=== PATIENT | female | born 1975 | race Caucasian/White ===

== ENCOUNTER → 2017-09-29 14:44 | Outpatient (CLI) | payer MEDICAID, SELFPAY ==
--- NOTE | 2017-09-29 14:51 | RAD_ITS ---
STUDY: X-RAY - RIGHT KNEE REASON FOR EXAM: Female, 42 years old. Chronic knee pain. TECHNIQUE: 4 view(s) of the knee. COMPARISON: None. FINDINGS: There is minimal marginal osteophytic lipping of the patellofemoral articulation. There is no significant degeneration of the medial lateral compartment of the knee. There is no effusion. Periarticular soft tissues are normal. Osseous structures are acutely intact and normally mineralized. RAD/Knee 4 or More Views IMPRESSION: Very minimal/early features of DJD. Similar to that seen in the left knee. No acute abnormality. Electronically Signed: Wil Robbins, at 15:40 EDT Tel , Service support ,
--- NOTE | 2017-09-29 14:52 | RAD_ITS ---
STUDY: X-RAY - LEFT KNEE REASON FOR EXAM: Female, 42 years old. Pain, months. TECHNIQUE: 4 view(s) of the knee. COMPARISON: X-ray contralateral knee same date. FINDINGS: There is very slight osteophytic lipping about the margin of the patellofemoral articulation. No significant degenerative features of the medial or lateral compartments. Osseous structures intact and normally mineralized. Periarticular soft tissues normal. No effusion. RAD/Knee 4 or More Views IMPRESSION: Very minimal/early DJD. No acute abnormality. Electronically Signed: Wil Robbins, at 15:39 EDT Tel , Service support ,
== END ==
PROVIDERS: Family Provider Internal Medicine; PCP Internal Medicine; Visit Provider Internal Medicine
DX: M19.90 Unspecified osteoarthritis, unspecified site (principal)
CPT/HCPCS: 73564

== ENCOUNTER 2017-12-09 14:00 | Outpatient (RCR) | payer MEDICAID, SELFPAY ==
--- NOTE | 2017-11-01 10:23 | HP.PTEVAL_ITS ---
Patient's Visit Information SLOANE BURRIS is a 42 year old F referred to Physical Therapy by AVILA Gee with a diagnosis of Bilateral patellofemoral syndrome. Date of Evaluation: 11/01/17 Physical Therapist: Jake Tyson - Visit Plan Frequency: 2x /Week Duration: 4 Weeks Plan: Start with quad, glute med, glute max and hip ER strengthening in non painful regions. Add in HS stretching, may use modalities to reduce acute symptoms. - Subjective Subjective: Pt. is here today for her initial evaluation with diagnosis of bilateral patellofemoral syndrome. Pt. 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 Pt. reports having increased pain with walking, squating, pt. transfers, stairs. Pt. had reduced pain with ice and useing her braces. Pt. denies N/T. Pt. reports that her R knee is now worse than her L. Pt. reports most pain at medial aspect of R knee. No mechanism of injury noted. Pt. is able to sleep without issues. Pt. denies radiating pain in either LE. Pt. is hopeful to reduce symptoms in order to get back to all recreational and work activities without issues. - Pain R knee Pain Intensity (Out of 10): 2 Pain Intensity Range: 1, 6 L knee Pain Intensity (Out of 10): 1 Pain Intensity Range: 0, 4 - Objective POSTURE: Pt. has slight L sided wt. shift in stance. Pt. has slight increase in genu valgum of bilateral knees with femoral IR bilaterally. PALPATION: Pt. has increased tenderness to palpation of medial joint lines bilaterally, R worse than L. Pt. has no popliteal fossa pain bilaterally. NEUROLOGICAL: Normal, all intact without issues. Pt. is able to perform heel/toe raises without issues. ROM: Pt. has normal ROM of bilateral knees and hip. With R active knee ext, pt. had mild popping at 20-30deg of knee ext. Increase NW. Only on R side. No L sided popping noted this date. MMT: RLE- ankle 5/5 throughout; knee- ext 4/5, flexion 4/5; hip- flexon 4+/5, abd 4+/5, ext 4/5, ER 4/5, IR 4/5. LLE- ankle 5/ 5 throughout; knee- ext 4+/5, flexion 4/5; hip- flexion 4+/5, adb 4/5, ext 4/5, ER 4/5, IR 4/5. GAIT: Pt. has increased femoral IR with genu valgum during stance phase of B LEs. Pt. has decreased knee flexion during R swing phase. Antalgic pattern during R stance phase. STAIRS: Pt. uses 1 HR with step to pattern with both ascending and descending, loading LLE only. Pt. reprots increased pain with attempting to load RLE. - Special Tests R Knee Jolanta - Meniscus: Negative R Knee Disco Test - Meniscus: Positive R Knee Nay - ACL: Negative R Knee Posterior Drawer - PCL: Negative R Knee Valgus - MCL: Negative R Knee Varus - LCL: Negative R Knee Patellar Apprehension - PFS: Negative R Knee Patellar Grind - PFS: Positive L Knee Jolanta - Meniscus: Negative L Knee Disco Test - Meniscus: Positive L Knee Nay - ACL: Negative L Knee Valgus - MCL: Negative L Knee Varus - LCL: Negative L Knee Patellar Apprehension - PFS: Negative L Knee Patellar Grind - PFS: Positive - Goals Goal 1:: Pt. to be I with HEP. Goal Time Frame: 4-6 Weeks Goal 2:: Pt. to have increased HS length and IT band length by 25% bilaterally. Goal Time Frame: 4-6 Weeks Goal 3:: Pt. to have increased BLE strength by 1/2 grade of her quads, glute medius, glute max, and hip ER to stabilize her knees with all functional mobility. Goal Time Frame: 4-6 Weeks Goal 4:: Pt. ambulate with normal pattern without increase in symptoms for unlimited distances. Goal Time Frame: 4-6 Weeks Goal 5:: Pt. to negotiate steps with reciprocal pattern with 1 HR without increase in symptoms of B knees. Goal Time Frame: 4-6 Weeks Goal 6:: Pt. to resume all work related activities without increase in symptoms. - Rehabilitation Potential Physical Therapy Diagnosis: Pt.has signs and symptoms consistent of B patellofemoral syndrome with R being worse than L. Pt. has tight bilateral IT bands, weak quads/glute med/glute max/Hip ER. Pt. would benefit from PT to strengthen above weak musculature in order to stabilize her knee with all functional mobility. Rehabilitation Potential: Excellent - Anticipated Interventions Patient/Client Instruction: Educate patient on: Condition, Plan of Care, Risk Factors, Benefits of Fitness Program For the Purpose of:: To foster healthy habits, To improve decision making, To facilitate caregiver knowledge, To improve self management, To prevent re-injury , To improve ability to perform tasks related to life management, To improve tolerance to ADL's Therapeutic Exercise to Include: Strength training, Power training, Body mechanics, Postural training, Flexibilty training, Gait and locomotor training, Passive ROM, Active ROM, Dynamic Lumbar Stabilization For the Purpose of:: To decrease pain, To increase ROM, To improve nutrient delivery to tissue, To increase oxygenation perfusion, To improve muscle performance and motor function, To improve health of tissue, To decrease soft tissue restriction IF ES: Yes Cryotherapy (ice pack, ice massage): Yes Thermo therapy (hot pack): Yes Ultrasound (thermal/non thermal): Yes For the Purpose of:: To decrease pain, To decrease swelling/inflammation, To increase ROM, To improve nutrient delivery to tissue Thank you for the opportunity to evaluate your patient. For Medicare and Medicare HMO plans, please review the plan of care and approve it. It will need to be FAXED BACK to us at [phone] for Medicare purposes. Please let me know if there are questions or concerns regarding this plan of care. Physician Signature: Date:
--- NOTE | 2018-01-10 14:00 | HP.PTDCSUM ---
HP - PT D/C Summary It has been my pleasure to treat SLOANE BURRIS under orders from AVILA Gee, for the diagnosis of Bilateral patellofemoral syndrome for a total of 8 visit(s). Discharge Date: 12/09/17 Please see the following information for a summary of their discharge status. - Subjective Subjective: Pt reports intermittent pain in B knees. Pt. reports increased exercises seem to increase her symptoms. Pt. has relief with stretching. Pt. reports being HEP compliant ~50% of the time. Pt. reports being 60% better overall. - Pain R knee Pain Intensity (Out of 10): 2 L knee Pain Intensity (Out of 10): 2 - Overall Improvement % Improvement: 60 - Objective Objective/Function: Pt has improved HS length to normal, increase IT band lenth to normal. MMT- RLE- ankle 5/5 throughout; knee- ext 5-/5, flexion 5-/5; hip- flexion 4+/5, abd 4+/5, ext 4+/5. LLE- anle 5/5 throughout; knee- ext 5-/5, flexion 5-/5; hip- flexion 4+/5, abd 4+/5, ext 4+/5. Core- fair-. GAIT- pt. has normal gait pattern. She continues to stand with hyper extended knee positioning, VCing to improve. STAIRS: Pt. is able to compelte with reciprocal pattern wth minimal icrease in symptoms, descending worse than ascending. - Goals Goal 1:: Pt. to be I with HEP. Goal Progress: Goal Met Goal 2:: Pt. to have increased HS length and IT band length by 25% bilaterally. Goal Progress: Goal Met Goal 3:: Pt. to have increased BLE strength by 1/2 grade of her quads, glute medius, glute max, and hip ER to stabilize her knees with all functional mobility. Goal Progress: Progressing Goal 4:: Pt. ambulate with normal pattern without increase in symptoms for unlimited distances. Goal Progress: Progressing Goal 5:: Pt. to negotiate steps with reciprocal pattern with 1 HR without increase in symptoms of B knees. Goal Progress: Progressing Goal 6:: Pt. to resume all work related activities without increase in symptoms. Goal Progress: Progressing - Plan Plan: Pt. to be Dc to HEP at this point in time. - D/C Information Discharge Comments: Pt. was seen for her B knee condramalasia. Pt. was treated with BLE stretching, quad and glute med strengthening along with body mechanics to reduce stress applied to B knees with all work activiies. Pt. tolerance PT well, but had increased symptoms once exercises were progress. Pt. is independent with current HEP and anthony be DC to HEP to trial on own at this point in time. If there are questions or concerns regarding this patient's physical therapy, please feel free to call me at [phone]. Thank you for the referral of this patient. Sincerely, Jake Tyson
== END 2017-12-09 19:00 | disposition home or self-care (01) ==
LOC: PT 14:00
PROVIDERS: Family Provider Internal Medicine; PCP Internal Medicine; Visit Provider Physician Assistant
DX: M22.2X1 Patellofemoral disorders, right knee (principal); M22.2X2 Patellofemoral disorders, left knee
CPT/HCPCS: 97110; 97162

== ENCOUNTER → 2018-04-25 15:32 | Outpatient (CLI) | payer MEDICAID, SELFPAY ==
[2018-04-25 14:13] VITALS: BMI 37.4
[2018-04-25 16:42] LABS: T4 Free Direct 0.82 ng/dL (0.76-1.46)
[2018-04-29 09:29] LABS: HPV APTIMA, High Risk Negative (Negative)
== END ==
PROVIDERS: Family Provider Internal Medicine; PCP Internal Medicine; Referring Provider Obstetrics & Gynecology; Visit Provider Obstetrics & Gynecology
DX: E01.0 Iodine-deficiency related diffuse (endemic) goiter (principal); Z12.4 Encounter for screening for malignant neoplasm of cervix
CPT/HCPCS: 36415; 84439; 84443; 87624; 88175; G0145

== ENCOUNTER → 2018-08-03 16:52 | Outpatient (CLI) | payer MEDICAID, SELFPAY ==
[2018-08-03 09:56] VITALS: BMI 37.4
== END ==
PROVIDERS: Family Provider Internal Medicine; PCP Internal Medicine; Referring Provider Obstetrics & Gynecology; Visit Provider Obstetrics & Gynecology
DX: N89.8 Other specified noninflammatory disorders of vagina (principal)
CPT/HCPCS: 87070; 87205

== ENCOUNTER → 2018-08-09 07:05 | Outpatient (CLI) | payer MEDICAID, SELFPAY ==
[2018-04-25 14:13] VITALS: BMI 37.4
[2018-08-03 09:56] VITALS: BMI 37.4
--- NOTE | 2018-08-09 07:20 | BI_ITS ---
MAMMOGRAPHY - BILATERAL SCREENING REASON FOR EXAM: Female, 43 years old. Routine annual screening examination. PERTINENT HISTORY: Non-contributory. TECHNIQUE: Digital bilateral breast jailyn (3D mammographic acquisition) in the CC and MLO projections. 2-D mediolateral oblique (MLO) and craniocaudad (CC) views of both breasts were obtained. CAD: Full Field Digital Mammography with Computer Added Detection was performed. COMPARISON: None. Baseline examination. FINDINGS: Breast Composition: The breasts are almost entirely fatty. There are no dominant masses or suspicious calcifications. No other significant abnormalities are identified. BI/SCREEN MAMM (CAD) W/JAILYN BILAT IMPRESSION: Negative screening mammogram. Yearly followup mammogram recommended. (A) ASSESSMENT CATEGORY: BIRADS Category 1: Negative. A letter regarding these results will be sent to the patient by the facility within 30 days. Approximately 10% of breast cancers are not detected by mammography. A normal mammogram should not delay biopsy of a clinically suspicious abnormality. [id number] Electronically Signed: Elías Li, at 10:42 EDT , Service support ,
== END ==
PROVIDERS: Family Provider Internal Medicine; PCP Internal Medicine; Visit Provider Obstetrics & Gynecology
DX: Z12.31 Encounter for screening mammogram for malignant neoplasm of breast (principal)
CPT/HCPCS: 77063; 77067

== ENCOUNTER → 2019-09-20 | Outpatient (CLI) | payer MEDICAID, SELFPAY ==
[2019-09-20 12:45] VITALS: BMI 37.4
== END | disposition home or self-care (01) ==
LOC: LABSPEC 14:34
PROVIDERS: PCP Internal Medicine; Visit Provider Obstetrics & Gynecology
DX: N89.8 Other specified noninflammatory disorders of vagina (principal)
CPT/HCPCS: 87070; 87205

== ENCOUNTER → 2020-09-30 12:12 | Outpatient (CLI) | payer BC, MEDICAID, SELFPAY ==
[2020-09-30 11:30] VITALS: BMI 37.4
[2020-09-30 13:26] LABS: T4 Free Direct 1.03 ng/dL (0.76-1.46); Thyroid Stim Hormone (TSH) 0.82 uIU/mL (0.358-3.74)
== END ==
PROVIDERS: PCP Internal Medicine; Referring Provider Obstetrics & Gynecology; Visit Provider Obstetrics & Gynecology
DX: E01.0 Iodine-deficiency related diffuse (endemic) goiter (principal)
CPT/HCPCS: 36415; 84439; 84443

== ENCOUNTER 2021-05-30 12:30 | Outpatient (CLI) | payer MEDICAID, SELFPAY ==
[2021-05-30 13:49] LABS: HIV - WCH Non-Reactive (Nonreactive); Hepatitis B Surface Antigen Non-Reactive (Nonreactive); Syphilis Antibodies Non-reactive
[2021-05-31 19:07] LABS: HCV Quant. RNA PCR HCV Not Detected IU/mL (.)
[2021-06-02 12:08] LABS: Chlamydia By Nucleic Acid AMP Negative (Negative)
[2021-06-02 13:36] LABS: Gonococcus By Nucleic Acid AMP Negative (Negative)
== END 2021-05-30 23:59 | disposition home or self-care (01) ==
LOC: PAVLAB 12:30
PROVIDERS: PCP Internal Medicine; Referring Provider Obstetrics & Gynecology; Visit Provider Obstetrics & Gynecology
DX: N76.0 Acute vaginitis (principal)
CPT/HCPCS: 36415; 83036; 86703; 86780; 87070; 87205; 87340; 87491; 87522; 87591

== ENCOUNTER 2021-07-15 17:50 | Outpatient (CLI) | payer MEDICAID, SELFPAY ==
[2021-07-17 22:07] LABS: Chlamydia By Nucleic Acid AMP Negative (Negative)
[2021-07-18 13:50] LABS: Gonococcus By Nucleic Acid AMP Negative (Negative)
== END 2021-07-15 23:59 | disposition home or self-care (01) ==
LOC: LABSPEC 07-16 09:50
PROVIDERS: PCP Internal Medicine; Visit Provider Nurse Practitioner Women's Health
DX: R30.0 Dysuria (principal); Z11.3 Encounter for screening for infections with a predominantly sexual mode of transmission; N76.0 Acute vaginitis
CPT/HCPCS: 87070; 87086; 87088; 87205; 87491; 87591

== ENCOUNTER → 2021-10-02 | Outpatient (CLI) | payer MEDICAID, SELFPAY ==
[2021-10-03 21:07] LABS: Chlamydia By Nucleic Acid AMP Negative (Negative)
[2021-10-03 22:23] LABS: Gonococcus By Nucleic Acid AMP Negative (Negative)
== END | disposition home or self-care (01) ==
LOC: LABSPEC 16:52
PROVIDERS: PCP Internal Medicine; Visit Provider Obstetrics & Gynecology
DX: N89.8 Other specified noninflammatory disorders of vagina (principal)
CPT/HCPCS: 87070; 87205; 87491; 87591

== ENCOUNTER → 2021-10-31 | Outpatient (CLI) | payer MEDICAID, SELFPAY ==
[2021-11-03 22:06] LABS: Chlamydia By Nucleic Acid AMP Negative (Negative)
[2021-11-03 23:01] LABS: Gonococcus By Nucleic Acid AMP Negative (Negative)
== END | disposition home or self-care (01) ==
LOC: LABSPEC 17:08
PROVIDERS: PCP Internal Medicine; Referring Provider Obstetrics & Gynecology; Visit Provider Obstetrics & Gynecology
DX: Z20.2 Contact with and (suspected) exposure to infections with a predominantly sexual mode of transmission (principal); Z11.3 Encounter for screening for infections with a predominantly sexual mode of transmission
CPT/HCPCS: 87491; 87591

== ENCOUNTER → 2022-06-23 | Outpatient (CLI) | payer MEDICAID, SELFPAY ==
--- NOTE | 2022-06-23 15:00 | CER_PTH ---
PATIENT: SLOANE SIMMONS LOC: [facility] U#:[id number] AGE/SX: 46/F ROOM: RE06/23/[address]: Dr. Leslie Buckley DO : 1975 BED: DIS: 06/23/2022 SPEC #: [id number] RECD: 06/24/22 07:58 STATUS: STEVEN DOMÍNGUEZ #: [id number] ESTEPHANIA: 06/23/22 15:[address]: Leslie Buckley DEPT: SURGICAL PATHOLOGY RECD BY: Lazara Samuels ENTERED: 06/24/22 07:59 SP TYPE: CERV OTHR DR: Dr. Carlos Blakely MD Tissues: Uterine cervix, NOS Procedures: Surgery Specimen Level IV HEADER OPERATION: Cervical polypectomy PRE-OP DIAGNOSIS: Cervical polyp TISSUE SUBMITTED: Cervix MICROSCOPIC DIAGNOSIS Cervical polyp, polypectomy: Inflamed benign endocervical polyp. SJ:chepe 06/25/2022 MICROSCOPIC DESCRIPTION Slides are reviewed. GROSS DESCRIPTION Received is one container labeled with the patient's name and not further designated. The specimen consists of a piece of moody-pink polyp measuring 1.0 x 0.5 x 0.3 cm. The entire specimen is submitted in one cassette. / SJ:chepe 06/24/2022 TC:5 CPT: 00206
[2022-06-26 02:07] LABS: Chlamydia By Nucleic Acid AMP Negative (Negative)
[2022-06-26 13:35] LABS: Gonococcus By Nucleic Acid AMP Negative (Negative)
== END | disposition home or self-care (01) ==
PROVIDERS: PCP Internal Medicine; Visit Provider Obstetrics & Gynecology
DX: N84.1 Polyp of cervix uteri (principal); Z11.3 Encounter for screening for infections with a predominantly sexual mode of transmission
CPT/HCPCS: 87491; 87591; 88305

== ENCOUNTER → 2022-07-01 | Outpatient (CLI) | payer MEDICAID, SELFPAY ==
--- NOTE | 2022-07-01 12:57 | US_ITS ---
STUDY: ULTRASOUND OF THE FEMALE PELVIS - COMPLETE REASON FOR EXAM: Female, 46 years old. possible uterine polyp LMP: TECHNIQUE: Transabdominal and transvaginal TECHNICAL QUALITY: Adequate. COMPARISON: None. FINDINGS: The uterus is anteverted and is in a midline position. The uterus measures 9.7 x 4.9 x 3.9 cm. Normal uterine cervix. The endometrium measures 8 mm in thickness, and is hyperechoic. There is no demonstrated endometrial mass. There is a small fibroid measuring approximately centimeter in size. I.U.D. - The patient does have an I.U.D. within the endometrial canal The right ovary is visualized. The right ovary measures 3.6 x 2.7 x 2.6. There is a cyst measuring 2.6 x 2.1 x 2 cm. There is no visualized right adnexal mass or complex lesion. There is normal arterial and normal venous vascularity. The left ovary is visualized. The left ovary measures 3.1 x 2.2 x 1.3 cm. There is no left ovarian cyst or ovarian mass. There is no visualized left adnexal mass or complex lesion. There is normal arterial and normal venous vascularity. There is no fluid in the cul-de-sac. The pre void volume of the bladder was 234 ml. US/Pelvic (Non ) IMPRESSION: Small uterine fibroid measuring approximately centimeter-in size.. Right ovarian cyst measuring 2.6 x 2.1 x 2 cm Electronically Signed: Yosef Donnelly MD at 16:36 EDT ,
== END | disposition home or self-care (01) ==
LOC: US 12:45
PROVIDERS: PCP Internal Medicine; Visit Provider Obstetrics & Gynecology
DX: N84.1 Polyp of cervix uteri (principal)
CPT/HCPCS: 76830; 76856

== ENCOUNTER → 2022-10-12 | Outpatient (CLI) | payer MEDICAID, SELFPAY ==
[2022-10-17 09:08] LABS: HPV APTIMA, High Risk Negative (Negative)
== END | disposition home or self-care (01) ==
LOC: LABSPEC 16:30
PROVIDERS: PCP Internal Medicine; Referring Provider Obstetrics & Gynecology; Visit Provider Obstetrics & Gynecology
DX: Z01.419 Encounter for gynecological examination (general) (routine) without abnormal findings (principal)
CPT/HCPCS: 87624; 88175; G0145

== ENCOUNTER → 2023-05-17 | Outpatient (CLI) | payer OTHER, MEDICAID, SELFPAY ==
[2023-05-20 08:12] LABS: Chlamydia By Nucleic Acid AMP Negative (Negative); Gonococcus By Nucleic Acid AMP Negative (Negative)
== END | disposition home or self-care (01) ==
PROVIDERS: PCP Internal Medicine; Visit Provider Obstetrics & Gynecology
DX: N89.8 Other specified noninflammatory disorders of vagina (principal); Z11.3 Encounter for screening for infections with a predominantly sexual mode of transmission
CPT/HCPCS: 87070; 87205; 87491; 87591

== ENCOUNTER → 2023-11-25 | Outpatient (CLI) | payer OTHER, SELFPAY ==
[2023-11-25 10:00] LABS: ALB/GLOB Ratio 0.9 RATIO (0.9-2.4); AST(SGOT) 19 U/L (15-37); Alanine Aminotransfer ALT/SGPT 25 U/L (13-56); Albumin, Serum 3.3 g/dL (3.2-5.0); Alkaline Phosphatase 64 U/L (45-117); Anion Gap 7 (5-15); BUN 13 mg/dL (7-18); BUN/Creat Ratio 18.9 RATIO (10-20); Calcium,Total 8.7 mg/dL (8.5-10.1); Chloride 107 mmol/L (98-107); Creatinine, Serum 0.69 mg/dL (0.55-1.02); EST Glomerular Filtration Rate 97 mL/min (>60); Est Glom Filt Rate - Afr Amer 118 mL/min (>60); Globulin 3.6 g/dL (2.2-4.2); Glucose 104 mg/dL (74-106); Potassium 3.9 mmol/L (3.5-5.1); Protein, Total 6.9 g/dL (6.4-8.2); Sodium Level 140 mmol/L (136-145)
== END | disposition home or self-care (01) ==
PROVIDERS: PCP Internal Medicine; Referring Provider Physician Assistant; Visit Provider Physician Assistant
DX: R33.9 Retention of urine, unspecified (principal)
CPT/HCPCS: 36415; 80053; 87086; 87661

== ENCOUNTER → 2023-12-06 | Outpatient (CLI) | payer OTHER, SELFPAY ==
--- NOTE | 2023-12-06 12:47 | US_ITS ---
STUDY: RENAL ULTRASOUND - COMPLETE REASON FOR EXAM: Female, 48 years old. urinary retention TECHNIQUE: Ultrasound evaluation of the kidneys was performed with real-time and static barlow-scale imaging. COMPARISON: 12/27/2012 FINDINGS: RIGHT KIDNEY: Normal location of the right kidney, which is normal in size. The right kidney measures 11.4 cm. There is a normal cortex of the right kidney. The renal cortex measures 1.4 cm. There is no right renal mass or cyst. There are no right renal calculi. There is no right hydronephrosis. DISTAL RIGHT URETER: There is non-visualization of the distal right ureter. There is no demonstrated right ureterovesical junction calculus. There is a visualized right ureteral jet. LEFT KIDNEY: Normal location of the left kidney, which is normal in size. The left kidney measures 11.7 cm. There is a normal cortex of the left kidney. The renal cortex measures 2.2 cm. There is no left renal mass or cyst. There are no left renal calculi. There is no left hydronephrosis. DISTAL LEFT URETER: There is non-visualization of the distal left ureter. There is no demonstrated left ureterovesical junction calculus. There is a visualized left ureteral jet. BLADDER: The distended urinary bladder has a volume of 116 ml. The empty urinary bladder has a volume of 4 ml. There is a normal wall thickness of the distended urinary bladder. There is no demonstrated mass within the urinary bladder. There are no demonstrated bladder calculi. US/Kidney and Bladder IMPRESSION: Normal ultrasound of the kidneys and urinary bladder. Electronically Signed: Wil Kumar MD at 9:47 EDT ,
== END | disposition home or self-care (01) ==
PROVIDERS: PCP Internal Medicine; Referring Provider Physician Assistant; Visit Provider Physician Assistant
DX: R33.9 Retention of urine, unspecified (principal)
CPT/HCPCS: 76770; 87491; 87591

== ENCOUNTER → 2024-02-07 | Outpatient (CLI) | payer OTHER, SELFPAY ==
[2024-02-07 15:39] LABS: Absolute Lymphocyte Count 1.66 X10^3/uL (0.83-4.51); Absolute Neutrophil Count 5.5 X10^3/uL (2.0-7.7); Basophil# 0.06 X10^3/uL; Basophil% 0.7 % (0-1); Eosinophil# 0.26 X10^3/uL; Eosinophils% 3.2 % (0-5); Hemoglobin 16.4 g/dL (12.0-15.0); Lymphocyte # 1.66 X10^3/ul (0.83-4.51); Lymphocyte % 20.3 % (19-41); Mean Corp Hgb Conc 34.2 g/dL (32-36); Mean Corpuscular Volume 84.8 fL (81-99); Mean Platelet Vol. 10.5 fl (6.2-12.0); Monocyte# 0.69 X10^3/uL; Monocyte% 8.4 % (0-10); NRBC Flagged by Analyzer 0 % (0-5); Neutrophil # 5.49 X10^3/uL (2.7-7.7); Platelet Count 259 K/mm3 (150-450); RBC Distribution Width CV 13.2 % (11.6-14.6); RBC Distribution Width SD 41.1 fl (35.1-43.9); Red Blood Count 5.66 M/mm3 (4.2-5.4); White Blood Count 8.2 K/mm3 (4.4-11.0)
[2024-02-07 16:00] LABS: AST(SGOT) 18 U/L (15-37); Alanine Aminotransfer ALT/SGPT 35 U/L (13-56); Albumin, Serum 3.9 g/dL (3.2-5.0); Alkaline Phosphatase 62 U/L (45-117); Anion Gap 8 (5-15); BUN 15 mg/dL (7-18); BUN/Creat Ratio 22.3 RATIO (10-20); Calcium,Total 9.2 mg/dL (8.5-10.1); Chloride 106 mmol/L (98-107); Cholesterol 139 mg/dL (200); Creatinine, Serum 0.67 mg/dL (0.55-1.02); EST Glomerular Filtration Rate 100 mL/min (>60); Est Glom Filt Rate - Afr Amer 121 mL/min (>60); Globulin 3.8 g/dL (2.2-4.2); Glucose 95 mg/dL (74-106); High Density Lipoprotein 62 mg/dL; Protein, Total 7.7 g/dL (6.4-8.2); Sodium Level 138 mmol/L (136-145); Triglycerides 89 mg/dL; Very Low Density Lipoprotein 18 mg/dL (5-40)
== END | disposition home or self-care (01) ==
LOC: BIMLAB 13:55
PROVIDERS: PCP Internal Medicine; Referring Provider Internal Medicine; Visit Provider Internal Medicine
DX: Z00.00 Encounter for general adult medical examination without abnormal findings (principal)
CPT/HCPCS: 36415; 80053; 80061; 85025